=== PATIENT | male | born 1960 | race Caucasian/White ===

== ENCOUNTER → 2023-03-04 14:03 | Outpatient (BNVA) | payer MEDICARE, SELFPAY | PROVIDERS: Referring Provider Nurse Practitioner Family; Visit Provider Physician Assistant | DX: M43.17 Spondylolisthesis, lumbosacral region; M47.816 Spondylosis without myelopathy or radiculopathy, lumbar region; M40.56 Lordosis, unspecified, lumbar region; M54.17 Radiculopathy, lumbosacral region | CPT/HCPCS: 72110; 99203 ==

== ENCOUNTER 2023-04-02 12:34 | Outpatient (CLI) | payer MEDICARE, SELFPAY ==
--- NOTE | 2023-04-02 13:00 | MR_ITS ---
WS: [id number] MRI LUMBAR SPINE NONCONTRAST HISTORY: pain COMPARISON: None available. TECHNIQUE: Sagittal and axial multisequence imaging is submitted. Lucency through the base of the odontoid seen on the survey of the spine. Mild posterior tilting of t he odontoid process. No surrounding edema. No prior studies for comparison. Mild increase in the lumb ar lordosis. L5 anterolisthesis by 9 mm. Marrow edema in the adjacent endplates of L5 and S1. Remaining disc bases are mildly desiccated. No additional marrow edema or fracture. Conus terminates normally at L1-2 disc level. L1-L2: Normal. L2-L3: Mild annular disc bulging and mild ligamentum flavum and facet arthritis. Very minimal encroac hment upon the LEFT subarticular recess. No high-grade stenosis. L3-L4: Mild annular disc bulging with moderate ligamentum flavum and facet arthritis. Very mild disc encroachment upon the subarticular recesses and the traversing L4 nerve roots. Mild subarticular rece ss encroachment. L4-L5: Mild annular disc bulging with mild disc encroachment upon the subarticular recesses. Moderate ligamentum flavum and facet arthritis. Mild bilateral subarticular recess and foraminal stenosis. Ne rve roots are becoming slightly clumped within the thecal sac. L5-S1: Unroofing of the L5-S1 disc. Diffuse annular disc bulging encroaching upon the ventral thecal sac. No central stenosis. There is disc encroachment upon the subarticular recesses. Severe bilateral foraminal stenosis. Significant contact on the exiting L5 nerve roots. IMPRESSION: 1. Grade 2 spondylolisthesis of L5. Anterolisthesis by 9 mm. Pars defects are also evident. 2. L5-S1: Severe bilateral foraminal stenosis with facet joint arthritis and mild disc encroachment u thao the subarticular recesses. 3. L4-5: Mild bilateral subarticular recess and foraminal stenosis. Moderate facet arthritis. 4. Minimal LEFT subarticular recess encroachment at L2-3 and mild bilateral subarticular recess encro achment L3-4. 5. Lucency at the base of the odontoid process. Probably from from a remote odontoid fracture. No mo or studies for comparison.
== END 2023-04-02 12:35 | disposition home or self-care (01) ==
LOC: RAD 12:38
PROVIDERS: PCP Nurse Practitioner Family; Visit Provider Physician Assistant
DX: M43.16 Spondylolisthesis, lumbar region (principal); M48.07 Spinal stenosis, lumbosacral region; M47.817 Spondylosis without myelopathy or radiculopathy, lumbosacral region
CPT/HCPCS: 72148

== ENCOUNTER 2025-02-15 12:29 | Outpatient (CLI) | payer MEDICARE, SELFPAY ==
--- NOTE | 2025-02-15 12:38 | XRR_ITS ---
PROCEDURE INFORMATION: Exam: XR Lumbosacral Spine Exam date and time: 02/15/2025 12:57 PM Age: 64 years old Clinical indication: Low back pain; Prior surgery; Surgery date: 1-6 months; Chronic lower back pain that radiates into the right leg x 4 years. HX of lumbar fusion x 4-5 months; Additional info: Spondylolisthesis, lumbar region TECHNIQUE: Imaging protocol: Radiologic exam of the lumbosacral spine. Views: 2 or 3 views. COMPARISON: 1. MR lumbar spine wo con* [id number] 04/02/2023 1:18 PM 2. CR XR lumbar spine min 4V [id number] 03/04/2023 2:32 PM FINDINGS: Bones/joints: Interval lumbar spine surgery since prior imaging. Posterior metallic fixation device now involves L4-S1 levels. Intact pedicle screws traverse the L4 and S1 levels, with intact posterior stabilization bars. 14 mm of L5 anterolisthesis is unchanged since prior imaging . There has been interval development of mild superior endplate depression involving L2. No other vertebral body height loss or fracture. Moderate anterior endplate spurs throughout the lumbar spine are unchanged. Moderate degenerative disc disease at L5-S1 is unchanged. Soft tissues: Unremarkable. XR/XR lumbar spine 2-3V* [id number] IMPRESSION: 1. Interval development of mild L2 compression fracture. 2. Interval posterior fusion involving L4 and S1. No interval change and L5 spondylolisthesis.
== END 2025-02-15 12:30 | disposition home or self-care (01) ==
PROVIDERS: PCP Nurse Practitioner Family; Visit Provider Nurse Practitioner Family
DX: M43.16 Spondylolisthesis, lumbar region (principal); Z98.1 Arthrodesis status
CPT/HCPCS: 72100

== ENCOUNTER 2025-03-21 22:51 | Inpatient (IN) | payer MEDICARE, SELFPAY ==
--- OUTSIDE RECORDS SUMMARY | 2025-02-15 08:00 | XMS_ITS ---
Author Organization [facility] Address [address] [place] [id number] Care Team Providers Care Size Tester Name Role Phone Lyudmila Lowery APRN Primary Care Provider Ashley Gutierrez [phone] REASON FOR VISIT s/p 11/25/24 low back pain x ray prior lumbar radiculopathy Medications Medication SIG (Take, Route, Frequency, Duration) Notes Start Date End Date Status Methocarbamol Active Fluoxetine Active HYDROcodone-Acetaminophen Active busPIRone HCl Active Docusate Sodium Acti ve Metoclopramide HCl 10 MG Tablet 1 tablet Orally TID; Duration: 10 days Take scheduled X3 days, then as needed for hiccups 12/03/2024 Active Methocarbamol 750 MG Tablet 1 tablet as needed Orally TID; Duration: 30 days 01/06/2025 03/07/2025 Active Encounters Encounter Location Date Provider Diagnosis [facility] [address] [address] 02/15/2025 Ashley Avendano Plan Of Treatment No Information Progress Notes * ALEN RICH FDOB: 3 (64 yo M)Acc No.[id number]:02/15/2025 Patient: JENAE HEATHY Macario Provider: Shay Avendano APRN :1960 A ge:64 Y S ex:Male Date:02/15/2025 Address:[address] [place] [address], [id number] Pcp:Lyudmila Lowery APRN Subjective: * Chief Complaints: * S /p 11/25/24 low back pain x ray prior lumbar radiculopathy * Medications: T akingMethocarbamol 750 MG Tablet 1 tablet as needed Orally TID , stop date 03/07/2025usPIRone HCl Docusate Sodium Fluoxetine HYDROcodone-Acetaminophen Methocarbamol Metoclopramide HCl 10 MG Tablet 1 tablet Orally TID Take scheduled X3 days, then as needed for hiccupsTaking Methocarbamol 750 MG Tablet 1 tablet as needed Orally TID , stop date 03/07/2025Taking busPIRone HCl Taking Docusate Sodium Taking Fluoxetine Taking HYDROcodone-Acetaminophen Taking Methocarbamol Taking Metoclopramide HCl 10 MG Tablet 1 tablet Orally TID Take scheduled X3 days, then as needed for hiccups Billing Information: * Procedure Codes: * Electronic signature of Jaydon Irene APRN on 03/21/2025 at 11:19 PM CDT Sign off status: Pending * Provider: Shay Avendano APRN Date: 0 02/15/2025 Generated for Liu piedra/Caitie/Nola on: 0 03/21/2025 11:19 PM CDT
--- OUTSIDE RECORDS SUMMARY | 2025-03-15 05:00 | XMS_ITS ---
Author Organization [facility] Address [address] [place] [address] Care Team Providers Care Service Person Name Role Phone Lyudmila Lowery APRN Primary Care Provider Ashley Gutierrez [phone] REASON FOR VISIT s/11/25/24 TLIF Encounters Encounter Location Date Provider Diagnosis [facility] [address] [address] 03/15/2025 Ashley Avendano Plan Of Treatment No Information Progress Notes * ALEN RICH FDOB: 3 (64 yo M)Acc No.[id number]:03/15/2025 Progress Notes Patient: ALEN HEATH Provider: Shay Avendano APRN :1960 A ge:64 Y S ex:Male Date:03/15/2025 Address:[address] [place] [id number] Pcp:Lyudmila Lowery APRN Subjective: * Chief Complaints: * s /p5 TLIF Billing Information: * Procedure Codes: Care Plan Details* * Electronic signature of Jaydon Irene APRN on 03/21/2025 at 11:20 PM CDT Sign off status: Pending * Provider: Shay Avendano APRN Date: 03/15/2025 Generated for Liu ng/Faabrilg/eTransmitting on: 03/21/2025 11:20 PM CDT
[2025-03-21 22:52] VITALS: BP 181/99; PULSE 90; RESP 17; O2SAT 95; BMI 24.3
--- NOTE | 2025-03-21 22:55 | PC.NURSE ---
upon arrival to the ed, pt was in 4 point soft restraints placed by [place] [facility]. upon arrival, pt had a skin tear to the left elbow, a skin tear around the left wrist, and an abrasion to the left hip. provider notified of injuries. wounds dressed with gauze and coban from ems with bleeding controlled at this time.
--- NOTE | 2025-03-21 23:00 | PC.NURSE ---
[facility] Pt served with copy of [facility] by their RN and security. Pt in restraint bed and resistant to any attempts of care made by staff.
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
[2025-03-21] MEDS: ketamine 100 mg/mL Inj 5 mL 300 MG IM (23:06)
--- NOTE | 2025-03-21 23:17 | PC.NURSE ---
pt restraints removed from ankles at 2317. pt wrist restraints removed to change pt into paper scrubs. wrist restraints reapplied at 0.
--- OUTSIDE RECORDS SUMMARY | 2025-03-21 23:19 | XMS_ITS | Encounter Summary ---
Author Organization [facility] Address [address] [place] [address] Care Team Providers Care Sales Force Developer Name Role Phone Marci Simpson Primary Care Provider [phone] Encounter Details Date Type Department Care Team (Late st Contact Info) Description 03/15/2025 External Device Data [facility] ABSTRACTION Provider, Abstract NO ADDRESS ON FILE Social History Tobacco Use Types Packs/Day Years Used Date Smoking Tobacco: Former Cigarettes Q uit: 06/27/2021 Smokeless Tobacco: Former Quit: 02/11/2015 Alcohol Use Standard Drinks/Week Comments Not Currently 0 (1 standard drink = 0.6 oz pur e alcohol) Financial Resource Strain Answer Date R ecorded How hard is it for you to pa y for the very basics like food, housing, medical care, and heating? Hard 05/28/2022 Food Insecurity Answer Date Recorded In the past 12 months, have you worried that your food would run out before you had money to buy more? Sometimes true 2021 In the past 12 months, did y ou run out of food and didn't have money to buy more? Never true 05/28/2022 Transportation Needs Answer Date Record ed In the past 12 months, has l ack of transportation kept you from medical appointments or from getting medications? No 05/28/2022 Lack of Transportation (Non-Medical) Not on file 05/28/2022 Feeling Safe Answer Date Recorded Are you in a relationship wi th someone who hurts you emotionally and/or physically? 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 OPERATOR Gender Identity Not on file Sexual Orientation Not on file documented as of this encounter Plan of Treatment Upcoming Encounters Date Type Department Care Team (Late st Contact Info) Description 08/25/2025 1:00 PM GAUGE OPERATOR Office Visit [facility] [address] [place] [id number] [place], LASER TECHNICIAN [address] [place] [facility] [id number] documented as of this encounter Visit Diagnoses Not on filedocumented in this encounter Additional Health Concerns Assessment Noted Time PHQ-9 Depression Total Score: 2 02/22/20 25 8:15 AM CDT documented as of this encounter Care Teams Sales Force Developer Relationship Specialty Start Date End Date Marci Simpson DO [address] [place] [facility] [phone] PCP - General Family Practice 08/30/24 documented as of this encounter
--- OUTSIDE RECORDS SUMMARY | 2025-03-21 23:19 | XMS_ITS | Patient Health Record ---
Author Organization [facility] Address [address] [place] [address] Care Team Providers Care Ruby On Rails Web Developer Name Role Phone Lyudmila Lowery APRN Primary Care Provider Unavaila Ashley Bowling Unavailable [phone] Alpesh Lyon Unavailable [phone] Aruna North Unavailable [phone] Allergies No Known Allergies Results Component Value Reference Range Flag Notes zzzFluoro >1h4 (Not yet revi ewed by provider) Interpretation: Performing Lab: Notes/Report: Fluoroscopy only. No dictation for this exam and accession number. FINAL REPORT Read Fluoroscopy only. No dictation for this exam and accession number. Lumbosacral Spine AP/Lat-721 00 Reviewed date:01/10/2025 01:27:29 PM Interpretation: Performing Lab: Notes/Report: [email or web address]=[id number]=iSite IH Lumbosacral Spine AP/Lat - 24821 (Not yet reviewed by provider) Interpretation: Performing Lab: Notes/Report: See Below For Report Lumbosacral Spine AP/Lat IH Lumbosacral Spine AP/Lat - 92927 (Not yet reviewed by provider) Interpretation: Performing Lab: Notes/Report: [email or web address]=[id number]=iSite Antibody Screen 33129 (Not y et reviewed by provider) Interpretation: Performing Lab: Notes/Report: Diagnosis Description: Hemorrhagic condition, unspecified Diagnosis Description: Encounter for other preprocedural examination Diagnosis Description: Spondylolisthesis, lumbar region Diagnosis Description: Spondylolysis, lumbar region Diagnosis Description: Lumbago with sciatica, right side Diagnosis Description: Lumbago with sciatica, left side Blood Bank ID [id number] Unknown ABSC Interp Negative ABORh 04132, 15908 (Not yet reviewed by provider) Interpretation: Performing Lab: Notes/Report: Diagnosis Description: Hemorrhagic condition, unspecified Diagnosis Description: Encounter for other preprocedural examination Diagnosis Description: Spondylolisthesis, lumbar region Diagnosis Description: Spondylolysis, lumbar region Diagnosis Description: Lumbago with sciatica, right side Diagnosis Description: Lumbago with sciatica, left side ABO/Rh Interp O NEG Unknown Partial Thromboplastin Time 00738 (Not yet reviewed by provider) Interpretation: Performing Lab: Notes/Report: Diagnosis Description: Hemorrhagic condition, unspecified Diagnosis Description: Encounter for other preprocedural examination Diagnosis Description: Spondylolisthesis, lumbar region Diagnosis Description: Spondylolysis, lumbar region Diagnosis Description: Lumbago with sciatica, right side Diagnosis Description: Lumbago with sciatica, left side PTT 33.9 22.6-31.8 SEC HI Therapeutic Range: 60-100. Critical Value Starting at > 100. Prothrombin Time 03961 (Not yet reviewed by provider) Interpretation: Performing Lab: Notes/Report: Diagnosis Description: Hemorrhagic condition, unspecified Diagnosis Description: Encounter for other preprocedural examination Diagnosis Description: Spondylolisthesis, lumbar region Diagnosis Description: Spondylolysis, lumbar region Diagnosis Description: Lumbago with sciatica, right side Diagnosis Description: Lumbago with sciatica, left side ProTime 10.4 9.1-11.9 SEC Normal Range : 9.1-11.9 INR .96 .90-1.20 Therapeutic Range: 2.0-3.0 Therapaeutic Range for heart valve replacement: 2.5-3.50 Basic Metabolic Panel (BMP) 86284 (Not yet reviewed by provider) Interpretation: Performing Lab: Notes/Report: Diagnosis Description: Hemorrhagic condition, unspecified Diagnosis Description: Encounter for other preprocedural examination Diagnosis Description: Spondylolisthesis, lumbar region Diagnosis Description: Spondylolysis, lumbar region Diagnosis Description: Lumbago with sciatica, right side Diagnosis Description: Lumbago with sciatica, left side Sodium 138 136-145 MMOL/L Potassium 3.7 3.5-5.1 MMOL/L Chloride 102 98-107 MMOL/L CO2 27.2 20.0-31.0 MMOL/L Glucose Serum 85 71-110 MG/DL Testing p erformed at [address] [place] [address]. CLIA ID#: [id number] BUN 12 7-21 MG/DL Creat .94 .57-1.17 MG/DL Use of this assay is not recommended for patients undergoing treatment with phenindione, due to the potential for falsely depressed results. L-fcwldv-s-benzoquin one imine (NAPQI) is a metabolite of acetaminophen, NAPQI concentrations of apparoximately 10 mg/L correlation to toxic levels of acetaminophen demonstrates a greater than or equil to 10% change in results. NAPQI concentrations greater than this may lead to falsely depressed results for patient samples. GFR 91.2 NA Calculation pe rformed from GFR calculator provided by the [employer]. Glomerular Filtration rate(GRF) is the best overall index of kidney function. Normal GFR varies according to age,sex, body size, and declines with age. The [employer] recommends using the CKD-EPI Creatinine Equation(2020) to estimate GFR. Anion Gap 12 5-15 BUN/Creat Ratio 12.8 12.0-20.0 % Calcium 9.3 8.7-10.4 MG/DL Osmo Serum,Calculated 285 280-300 MOSM/KG CBC w\ Auto Diff 84246 (Not yet reviewed by provider) Interpretation: Performing Lab: Notes/Report: Diagnosis Description: Hemorrhagic condition, unspecified Diagnosis Description: Encounter for other preprocedural examination Diagnosis Description: Spondylolisthesis, lumbar region Diagnosis Description: Spondylolysis, lumbar region Diagnosis Description: Lumbago with sciatica, right side Diagnosis Description: Lumbago with sciatica, left side WBC 6.2 4.5-11.0 X10'3 RBC 4.60 4.50-5.90 X10'6 Hgb 13.8 13.5-17.5 G/DL Hct 43.2 41.0-53.0 % MCV 93.9 80.0-100.0 FL MCH 30.0 27.0-31.0 PG MCHC 31.9 31.0-37.0 G/DL Platelet 224 150-400 X10'3 RDW-SD 48.3 35.0-49.0 FL RDW-CV 14.0 12.2-15.6 % MPV 9.4 9.2-12.0 FL Neutro Auto% 66.8 40.0-70.0 % Lymph Auto% 22.1 22.0-44.0 % Isabella Auto% 7.4 3.0-7.0 % HI Eos Auto% 2.7 2.0-4.0 % Baso Auto% 0.5 0.0-1.0 % Imm Gran% .5 .0-.4 % HI Neutro Abs 4.13 .80-7.70 Absolute Neutrophil Count 4130 NA Lymph Abs 1.37 .10-4.10 Isabella Abs .46 .20-1.00 Eos Abs .17 .00-.40 Baso Abs .03 .00-.20 Imm Gran Abs .03 .00-.10 NRBC# .00 .00-.20 NRBC% .00 .00-.20 /100 intact WBC's Chest PA/Lat-77087 (Not yet reviewed by provider) Interpretation: Performing Lab: Notes/Report: [id number]=iSite Chest PA/Lat-05913 (Not yet reviewed by provider) Interpretation: Performing Lab: Notes/Report: See Below For Report Chest PA/Lat Diagnosis Description: Encounter for other preprocedural examination Read See Below For Report Schedule Confirmation (Not y et reviewed by provider) Interpretation: Performing Lab: Notes/Report: CT L-Spine w/o Contrast Mazor Protocol CT L-Spine w/o Contrast Ava r Protocol-50717 (Not yet reviewed by provider) Interpretation: Performing Lab: Notes/Report: [id number]=iSite Lumbosacral Spine Bending Vi ews-90762 (Not yet reviewed by provider) Interpretation: Performing Lab: Notes/Report: See Below For Report Lumbosacral Spine Bending Views Read See Below For Report IH Lumbosacral Spine AP/Lat - 56013 Reviewed date:01/10/2025 01:29:49 PM Interpretation: Performing Lab: Notes/Report: See Below For Report Lumbosacral Spine AP/Lat Diagnosis Description: Spondylolisthesis, lumbar region Schedule Confirmation (Not y et reviewed by provider) Interpretation: Performing Lab: Notes/Report: CT L-Spine w/o Contrast Mazor Protocol CT L-Spine w/o Contrast Ava r Protocol-79714 (Not yet reviewed by provider) Interpretation: Performing Lab: Notes/Report: See Below For Report CT L-Spine w/o Contrast Mazor Protocol Diagnosis Description: Unstable burst fracture of second lumbar vertebra, subsequent encounter for fracture with routine healing Read See Below For Report Reason For Referral No Information Medications Medication SIG (Take, Route, Frequency, Duration) Notes Start Date End Date Status Methocarbamol Active Metoclopramide HCl 10 MG Tablet 1 tablet Orally TID; Duration: 10 days Take scheduled X3 days, then as needed for hiccups 12/03/2024 Active Fluoxetine Active HYDROcodone-Acetaminophen Active busPIRone HCl Active Docusate Sodium Acti ve Social History Tobacco Use: Social History Observation Description Date Details (start date - stop date) Current Smoker NA - NA Social History Drug/Alcohol: Social Info Question Answer Notes AUDIT-C (Standard) Did you have a drink containing alcohol in the past year? No Points 0 Interpretation Negative Tobacco Use: Social Info Question Answer Notes Tobacco Control (Standard) Tobacco use: Current smoker How often do you smoke cigarettes? Every day Problems Problem Type SNOMED Code ICD Code Onset Dates Problem Status W/U Status Risk Notes Problem Chronic pain (16601954) Other chronic pain (G89.29) Active confirmed Problem Acquired spondylolisthesis (182705257) Spondylolisthesis, lumbar region (M43.16) Active confirmed Problem Cervicalgia (44044122) Cervicalgia (M54.2) Active confirmed Problem Sciatica (98103260) Lumbago with sciatica, right side (M54.41) Active confirmed Problem Sciatica (43897433) Lumbago with sciatica, left side (M54.42) Active confirmed Problem Bleeding tendency (98251799) Bleeding tendency (D69.9) Active confirmed Problem Acquired spondylolisthesis (222280900) Lumbar spondylolysis (M43.06) Active confirmed Problem Acquired spondylolisthesis (615074357) Acquired spondylolisthesis of lumbosacral region (M43.17) Active confirmed Problem Late effect of fracture of spine AND/OR trunk without spinal cord lesion (5006521) Pseudoarthrosis of cervical spine, sequela (S12.9XXS) Active confirmed Problem Closed unstable burst fracture of second lumbar vertebra with routine healing, subsequent encounter (S32.022D) Active confirmed Problem Acute low back pain (finding) (829208142) Acute midline low back pain without sciatica (M54.50) Active confirmed Vital Signs Heart Rate 62 /min 01/06/2025 Temperature 96.8 degrees Fahrenheit 01/06/2025 Respiratory Rate 19 /min 01/06/2025 Height-cm 170.18 cm 01/06/2025 Oximetry 96 % 01/06/2025 Blood pressure diastolic 72 mm Hg 01/06/2025 Weight-kg 72.58 kg 01/06/2025 Height 67 in 01/06/2025 Blood pressure systolic 142 mm Hg 01/06/2025 Weight 160 lbs 01/06/2025 BMI 25.06 kg/m2 01/06/2025 Encounters Encounter Location Date Provider Diagnosis [facility] [address] [place] [address] 10/21/2024 Alpesh Rodriguezalyssa Closed unstable burs t fracture of second lumbar vertebra with routine healing, subsequent encounter S32.022D ; Other chronic pain G89.29 ; Acute midline low back pain without sciatica M54.50 ; Spondylolisthesis, lumbar region M43.16 ; Lumbar spondylolysis M43.06 ; Lumbago with sciatica, right side M54.41 and Lumbago with sciatica, left side M54.42 [facility] [address] [place] [address] 07/22/2024 Alpesh Rodriguezalyssa Closed unstable burs t fracture of second lumbar vertebra with routine healing, subsequent encounter S32.022D ; Other chronic pain G89.29 ; Acute midline low back pain without sciatica M54.50 and Spondylolisthesis, lumbar region M43.16 [facility] [address] [place] [address] 06/14/2024 Alpesh Ramírezmartha Closed unstable burs t fracture of second lumbar vertebra with routine healing, subsequent encounter S32.022D ; Acute midline low back pain without sciatica M54.50 ; Cervicalgia M54.2 ; Pseudoarthrosis of cervical spine, sequela S12.9XXS and Spondylolisthesis, lumbar region M43.16 [facility] [address] [place] [address] 01/06/2025 Aruna North Spondylolisthesis, lumbar region M43.16 ; Lumbar spondylolysis M43.06 ; Lumbago with sciatica, right side M54.41 ; Lumbago with sciatica, left side M54.42 ; Postop check Z09 and Arthrodesis status Z98.1 [facility] [address] [place] [address] 12/09/2024 Aruna North Spondylolisthesis, lumbar region M43.16 ; Lumbar spondylolysis M43.06 ; Lumbago with sciatica, right side M54.41 ; Lumbago with sciatica, left side M54.42 ; Postop check Z09 and Arthrodesis status Z98.1 [facility] [address] [facility] [place] [address] 12/03/2024 Aruna North Spondylolisthesis, lumbar region M43.16 ; Lumbar spondylolysis M43.06 ; Lumbago with sciatica, right side M54.41 ; Lumbago with sciatica, left side M54.42 ; Postop check Z09 ; Arthrodesis status Z98.1 and Intractable hiccups R06.6 [facility] [address] [facility] [place] [place] [address] 05/10/2024 Alpesh Lyon Closed unstable burs t fracture of second lumbar vertebra with routine healing, subsequent encounter S32.022D ; Acute midline low back pain without sciatica M54.50 ; Cervicalgia M54.2 and Pseudoarthrosis of cervical spine, sequela S12.9XXS [facility] [address] [place] [address] 11/09/2024 Alpesh Lyon Bleeding tendency D6 9.9 ; Pre-op testing Z01.818 ; Spondylolisthesis, lumbar region M43.16 ; Lumbar spondylolysis M43.06 ; Lumbago with sciatica, right side M54.41 and Lumbago with sciatica, left side M54.42 [facility] [address] [place] [address] 10/27/2024 Alpesh Lyon [facility] [address] [place] [address] 10/26/2024 [facility] [address] [place] [address] 09/09/2024 [facility] [address] [place] [address] 08/09/2024 [facility] [address] [place] [address] 07/15/2024 [facility] [address] [place] [address] 07/05/2024 [facility] [address] [place] [address] 06/29/2024 Alpesh martha Bleeding tendency D6 9.9 ; Pre-op testing Z01.818 ; Closed unstable burst fracture of second lumbar vertebra with routine healing, subsequent encounter S32.022D ; Acute midline low back pain without sciatica M54.50 and Spondylolisthesis, lumbar region M43.16 [facility] [address] [place] [address] 06/16/2024 [facility] [address] [place] [address] 02/24/2025 [facility] [address] [place] [address] 12/07/2024 Aruna North [facility] [address] [place] [address] 11/29/2024 Alpesh Lyon Assessments Encounter Date Diagnosis (ICD Code) Assessment Notes Treatment Notes Treatment Clinical Notes Section Notes 05/10/2024 Closed unstable burst fracture of second lumbar vertebra with routine healing, subsequent encounter (ICD-10 - S32.022D) Patient symptoms and clinical findings reviewed. Patient appears to have good healing of burst fracture, he has continued lower back pain that is somewhat mechanical in nature, he might benefit from hardware removal will obtain CT scan to assess healing of burst fracture and hardware, return visit 2 weeks 05/10/2024 Acute midline low back pain without sciatica (ICD-10 - M54.50) 06/14/2024 Closed unstable burst fracture of second lumbar vertebra with routine healing, subsequent encounter (ICD-10 - S32.022D) Patient symptoms and clinical findings reviewed, imaging studies shown to patient and discussed. I recommended removal of hardware T12-L4, L2 burst fracture appears to have healed well without complication. Patient has residual back and hip pain, additional pain generators could be spondylolisthesis at L5-S1 however this is an old problem and less likely to be the pain generator at present. All questions and concerns addressed, patient would like to proceed with minimally invasive percutaneous removal of hardware. 06/14/2024 Acute midline low back pain without sciatica (ICD-10 - M54.50) 06/29/2024 Bleeding tendency (ICD-10 - D69.9) 07/22/2024 Closed unstable burst fracture of second lumbar vertebra with routine healing, subsequent encounter (ICD-10 - S32.022D) 07/22/2024 Other chronic pain (ICD-10 - G89.29) Patient symptoms and clinical findings reviewed, treatment options discussed. I have again recommended hardware removal, patient is not inclined to consider this option. Will continue symptomatic treatment, return visit 3 months or sooner if symptoms change or worsen. 10/21/2024 Closed unstable burst fracture of second lumbar vertebra with routine healing, subsequent encounter (ICD-10 - S32.022D) 10/21/2024 Other chronic pain (ICD-10 - G89.29) Patient symptoms and clinical findings reviewed, treatment options discussed. All questions and concerns addressed. I recommended above surgery with removal of hardware T12-L4 with percutaneous technique, posterolateral fusion L4, L5, S1 with foraminotomies minimally invasive approach, posterolateral fusion L4, L5, S1 bilateral. Will use [employer] robot for minimally invasive imaging stereotactic navigational robotic approach. 11/09/2024 Bleeding tendency (ICD-10 - D69.9) 12/03/2024 Spondylolisthesis, lumbar region (ICD-10 - M43.16) Patient symptoms and clinical findings reviewed, treatment options discussed. All questions and concerns addressed. Will start patient on Cephalexin BID for redness, warmth, and drainage to lumbar incision. Start Reglan for intractable hiccups. Educated on signs/symptoms of infection and bowel obstruction and when to return to clinic. Patient verbalizes understanding. Follow up next week as scheduled. Patient agreeable to plan. 12/03/2024 Lumbar spondylolysis (ICD-10 - M43.06) 12/09/2024 Spondylolisthesis, lumbar region (ICD-10 - M43.16) Patient symptoms and clinical findings reviewed, response to surgical treatment discussed. All questions and concerns addressed. Incision healing well, May use heat/ice on incision to help with healing. Okay to lift up to 15 pounds. May begin driving. No soaking incision. Denies need for refills. F/u in 4-6 weeks w/ xray prior, sooner if needed. 01/06/2025 Spondylolisthesis, lumbar region (ICD-10 - M43.16) Patient symptoms and clinical findings reviewed, response to surgical treatment discussed. All questions and concerns addressed. Incision healing well w/o signs of infection Okay to lift up to 20 pounds. May soak incision. Lumbosacral xray reviewed with stable hardware. Refill methocarbamol today. F/u in 8 weeks w/ xray prior, sooner if needed. 01/06/2025 Lumbar spondylolysis (ICD-10 - M43.06) 12/09/2024 Lumbar spondylolysis (ICD-10 - M43.06) 12/03/2024 Lumbago with sciatica, right side (ICD-10 - M54.41) 11/09/2024 Pre-op testing (ICD-10 - Z01.818) 10/21/2024 Acute midline low back pain without sciatica (ICD-10 - M54.50) 07/22/2024 Acute midline low back pain without sciatica (ICD-10 - M54.50) 06/29/2024 Pre-op testing (ICD-10 - Z01.818) 06/14/2024 Cervicalgia (ICD-10 - M54.2) 05/10/2024 Cervicalgia (ICD-10 - M54.2) 05/10/2024 Pseudoarthrosis of cervical spine, sequela (ICD-10 - S12.9XXS) 06/14/2024 Pseudoarthrosis of cervical spine, sequela (ICD-10 - S12.9XXS) 06/29/2024 Closed unstable burst fracture of second lumbar vertebra with routine healing, subsequent encounter (ICD-10 - S32.022D) 07/22/2024 Spondylolisthesis, lumbar region (ICD-10 - M43.16) 10/21/2024 Spondylolisthesis, lumbar region (ICD-10 - M43.16) 11/09/2024 Spondylolisthesis, lumbar region (ICD-10 - M43.16) 12/03/2024 Lumbago with sciatica, left side (ICD-10 - M54.42) 12/09/2024 Lumbago with sciatica, right side (ICD-10 - M54.41) 01/06/2025 Lumbago with sciatica, right side (ICD-10 - M54.41) 01/06/2025 Lumbago with sciatica, left side (ICD-10 - M54.42) 12/09/2024 Lumbago with sciatica, left side (ICD-10 - M54.42) 12/03/2024 Postop check (ICD-10 - Z09) 11/09/2024 Lumbar spondylolysis (ICD-10 - M43.06) 10/21/2024 Lumbar spondylolysis (ICD-10 - M43.06) 06/29/2024 Acute midline low back pain without sciatica (ICD-10 - M54.50) 06/14/2024 Spondylolisthesis, lumbar region (ICD-10 - M43.16) 06/29/2024 Spondylolisthesis, lumbar region (ICD-10 - M43.16) 10/21/2024 Lumbago with sciatica, right side (ICD-10 - M54.41) 11/09/2024 Lumbago with sciatica, right side (ICD-10 - M54.41) 12/03/2024 Arthrodesis status (ICD-10 - Z98.1) 12/09/2024 Postop check (ICD-10 - Z09) 01/06/2025 Postop check (ICD-10 - Z09) 01/06/2025 Arthrodesis status (ICD-10 - Z98.1) 12/09/2024 Arthrodesis status (ICD-10 - Z98.1) 12/03/2024 Intractable hiccups (ICD-10 - R06.6) 11/09/2024 Lumbago with sciatica, left side (ICD-10 - M54.42) 10/21/2024 Lumbago with sciatica, left side (ICD-10 - M54.42) Plan Of Treatment Pending Test Test Name Order Date Prothrombin Time 34184 06/29/2024 Prothrombin Time 82828 11/09/2024 Prothrombin Time 25274 12/30/2023 Prothrombin Time 76273 11/18/2024 ABORh 27667, 77620 11/18/2024 ABORh 10701, 47116 12/30/2023 ABORh 16796, 66378 06/29/2024 ABORh 64843, 78239 11/09/2024 Antibody Screen 95669 11/09/2024 Antibody Screen 21435 06/29/2024 Antibody Screen 81277 12/30/2023 Antibody Screen 36362 11/18/2024 Basic Metabolic Panel (BMP) 78197 2024 Basic Metabolic Panel (BMP) 09591 2023 Basic Metabolic Panel (BMP) 20711 2023 Basic Metabolic Panel (BMP) 16283 2024 CBC w\ Auto Diff 48455 06/29/2024 CBC w\ Auto Diff 08412 11/09/2024 CBC w\ Auto Diff 06941 12/30/2023 CBC w\ Auto Diff 88587 11/18/2024 Partial Thromboplastin Time 07967 2024 Partial Thromboplastin Time 54147 2023 Partial Thromboplastin Time 08914 2023 Partial Thromboplastin Time 65039 2024 Cervical Spine w/ Obl/Flex/Ext Comp-7205 2 02/16/2024 CT L-Spine w/o Contrast incl Recon-45529 12/29/2023 CT L-Spine w/o Contrast incl Recon-35938 12/29/2023 Lumbosacral Spine Bending Views-40134 Lumbosacral Spine Comp w/ Bending-36047 02/16/2024 Thoracolumbar Spine AP/Lat-94950 024 Thoracolumbar Spine AP/Lat-58222 024 Urinalysis--41979 12/29/2023 UA Microscopic--57223 12/29/[address] [facility]-46265,66124 12/30/2023 zzzFluoro >1h4 11/25/2024 zzzFluoroscopy 12/30/2023 Schedule Confirmation 05/13/2024 Schedule Confirmation 05/13/2024 CT L-Spine w/o Contrast Mazor Protocol-7 213005/13/2024 IH Lumbosacral Spine AP/Lat - 77387 11/11 IH Lumbosacral Spine AP/Lat - 86136 11/11 Future Test Test Name Order Date Cervical Spine w/ Obl/Flex/Ext Comp-7205 2 01/22/2024 Lumbosacral Spine Comp w/ Bending-05024 01/22/2024 Lumbosacral Spine Bending Views-28709 CT L-Spine w/o Contrast Mazor Protocol-7 213005/12/2024 Chest PA/Lat-10660 06/29/2024 Electrocardiogram 12 Lead Tracing-13668 06/29/2024 Chest PA/Lat-60546 11/09/2024 Electrocardiogram 12 Lead Tracing-50218 11/09/2024 Lumbosacral Spine AP/Lat-01290 5 Insurance Providers Payer Name Payer Address Payer Phone Subscriber Number Group Number Insured Name Patient Relationship to Insured Coverage Start Date Coverage End Date [employer] [place] [address] [place] [address] [id number] LAYLA ALEN Self - patient is the insured Medical (General) History Medical History History ICD Code Back Trouble Surgical History Surgery Date(Month/Year) Reduction of L2 Burst Fractu re, Posterior Stabilization of L2 Burst Fracture with Perc pedicle screws T12-L4 with Contoured rods, Posterolateral Fusion L2-3 MIS. 12/29/2023 Hospitalization History Reason Date(Month/Year) Burst Fracture
--- OUTSIDE RECORDS SUMMARY | 2025-03-21 23:19 | XMS_ITS | Clinical Summary ---
Author Organization [facility] Address [address] [place] [address] Phone Care Team Providers Care Respiratory Clinician Name Role Phone Long Li MD Primary Care Provider [phone] Allergies No known active allergies Medications pravastatin (PRAVACHOL) 40 mg tabletIndications:M ixed hyperlipidemia Take 1 Tablet (40 mg) by mouth daily with supper. 90 Tablet 4 0 Active orphenadrine (NORFLEX) 100 mg Extended Release tabletIndications:C hronic neck pain Take 1 Tablet (100 mg) by mouth 2 times daily as needed for Spasm (Pain). 60 Tablet 5 0 Active Active Problems Problem Noted Date Diagnosed Date Tobacco use 11/30/2019 Mixed hyperlipidemia 11/30/2019 Vitamin D deficiency 11/30/2019 Chronic neck pain 11/30/2019 Social History Tobacco Use Types Packs/Day Years Used Date Smoking Tobacco: Every Day Cigarettes Smokeless Tobacco: Current Alcohol Use Standard Drinks/Week Comments Never 0 (1 standard drink = 0.6 oz pur e alcohol) Sex and Gender Information Value Date Recorded Sex Assigned at Not on file Legal Sex Male 1:17 AM CDT Gender Identity Not on file Sexual Orientation Not on file Last Filed Vital Signs Vital Sign Reading Time Taken Comments Blood Pressure 118/70 11/30/2019 2:29 PM CDT Pulse 99 11/30/2019 2:29 PM CDT Temperature 36.4 C (97.6 F) 11/30/2019 2:29 PM CDT Respiratory Rate 16 11/30/2019 2:29 PM CDT Oxygen Saturation 95% 11/30/2019 2:29 PM CDT Inhaled Oxygen Concentration - - Weight 83 kg (183 lb) 11/30/2019 2:29 PM CDT Height 162.6 cm (5' 4 ) 11/30/2019 2:29 PM CDT Body Mass Index 31.41 11/30/2019 2:29 PM CDT Plan of Treatment Health Maintenance Due Date Last Done Comments Pre-Diabetes and Diabetes Screening 1962 DTAP/TDAP/TD VACCINES (1 - Tdap) 1981 COLORECTAL SCREENING 2007 Colorectal Cancer Screening 2007 FIT-DNA Q 3 years 2007 FIT/FOBT Q 1 year 2007 Flex Sig/CT Colonography Q 5 years 2007 ZOSTER VACCINE (1 of 2) 2012 INFLUENZA VACCINE (#1) 2025 RSV VACCINE (60+ or ) (1 - 1-dose 75+ series) 2037 Care Teams Respiratory Clinician Relationship Specialty Start Date End Date Long Li MD [address] [place] [address] PCP - General Family Practice 11/30/19
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
--- OUTSIDE RECORDS SUMMARY | 2025-03-21 23:20 | XMS_ITS | Clinical Summary ---
Author Organization [facility] Address [address] [facility] Attn: Epic Prelude ADT MATE[place] [address] Care Team Providers Care Digital Media Sales Consultant Name Role Phone Marci Simpson John SANDERS Primary Care Provider [phone] Allergies No known active allergies Medications sildenafiL, pulm.hypertension, (REVATIO) 20 mg TabletIndications: Erectile dysfunction, unspecified erectile dysfunction type TAKE FIVE TABLETS BY MOUTH ONE time daily NEEDED FOR erectile dysfunction. 75 Tablet 11/19/19 24 Active pravastatin (PRAVACHOL) 40 mg tabletIndications: Mixed hyperlipidemia TAKE 1 TABLET DAILY WITH SUPPER 100 Tablet 3 08/30/19 25 Active FLUoxetine (PROzac) 40 mg capsuleIndications :Mild episode of recurrent major depressive disorder Take 1 Capsule (40 mg) by mouth daily. 90 Capsule 3 12/28/19 25 Active hydrOXYzine HCL (ATARAX) 10 mg tabletIndications: EVELIN (generalized anxiety disorder) Take 1 Tablet (10 mg) by mouth 3 times daily as needed for Anxiety. 90 Tablet 2 02/22/20 25 Active busPIRone (BUSPAR) 15 mg TabletIndications: EVELIN (generalized anxiety disorder) Take 1 Tablet (15 mg) by mouth 3 times daily as needed for Anxiety. 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 2021 Erectile dysfunction 2021 Bulging lumbar disc 02/27/2021 Pars defect with spondylolisthesis 02/27/2021 Hiatal hernia 02/27/2021 Tobacco use 11/30/2019 Mixed hyperlipidemia 11/30/2019 Vitamin D deficiency 11/30/2019 Chronic neck pain 11/30/2019 Encounters Date Type Department Care Team Description 03/15/2025 External Device Data [facility] ABSTRACTION Provider, Abstract 03/01/2025 External Device Data [facility] ABSTRACTION Provider, Abstract 03/01/2025 External Device Data [facility] ABSTRACTION Provider, Abstract 02/23/2025 Orders Only [facility] [address] [place] [address] Waite, October, DIRECTOR OF PHYSICAL SECURITY Hypersomnia (Primary Dx) 02/23/2025 Orders Only [facility] [address] [place] [address] Waite, October, DIRECTOR OF PHYSICAL SECURITY Hypersomnia (Primary Dx) 02/22/2025 Results Follow-Up [facility] [address] [place] [address] Waite, October, DIRECTOR OF PHYSICAL SECURITY PSA, VITAMIN D 25 HYDROXY, TSH, Additional followed-up results: 3 02/21/2025 8:20 AM CDT Office Visit [facility] [address] [place] [address] Waite, October, DIRECTOR OF PHYSICAL SECURITY Encounter for Medicare annual wellness exam (Primary Dx); Encounter for colorectal cancer screening using Cologuard test; Mild episode of recurrent major depressive disorder; EVELIN (generalized anxiety disorder); Mixed hyperlipidemia; Hypersomnia; Vitamin D deficiency; Encounter for screening for malignant neoplasm of prostate 02/08/2025 External Device Data [facility] ABSTRACTION Provider, Abstract 02/08/2025 External Device Data [facility] ABSTRACTION Provider, Abstract 01/04/2025 External Device Data [facility] ABSTRACTION Provider, Abstract 01/04/2025 External Device Data [facility] ABSTRACTION Provider, Abstract 12/29/2024 External Device Data [facility] ABSTRACTION Provider, Abstract 12/27/[address] [phone] Morris, Crystal Cecy, DIRECTOR OF PHYSICAL SECURITY Mild episode of recurrent major depressive disorder from Last 3 Months Immunizations Immunization Administration Dates Next Due (ADACEL/BOOSTRIX)(10 YR UP) TDAP VACCINE, 0.5ML, IM 10/08/2024 (SPIKEVAX) (12 YRS UP PRIMAR Y SERIES) COVID-19 VACCINE - MRNA-1273(PF) 100 MCG/0.5 ML IM SUSP 10/10/2020,09/11/2020 INFLUENZA VACCINE QUADRIVALENT 6 MOS UP PF IM Influenza Seasonal Unspecified Formulation IM Social History Tobacco Use Types Packs/Day Years Used Date Smoking Tobacco: Former Cigarettes Q uit: 06/27/2021 Smokeless Tobacco: Former Quit: 02/11/2015 Tobacco Cessation:Counseling Given: No Alcohol Use Standard Drinks/Week Comments Not Currently [...] on file Legal Sex Male 8:19 AM AERIAL PLANTING AND CULTIVATION MANAGER Gender Identity Not on file Sexual Orientation Not on file Last Filed Vital Signs Vital Sign Reading Time Taken Comments Blood Pressure 122/70 02/21/2025 8:18 AM CDT Pulse 71 02/21/2025 8:18 AM CDT Temperature 36.8 C (98.2 F) 02/21/2025 8:18 AM CDT Respiratory Rate 18 02/21/2025 8:18 AM CDT Oxygen Saturation 98% 02/21/2025 8:18 AM CDT Inhaled Oxygen Concentration - - Weight 71.2 kg (157 lb) 02/21/2025 8:18 AM CDT Height 165.1 cm (5' 5 ) 02/21/2025 8:18 AM CDT Body Mass Index 26.13 02/21/2025 8:18 AM CDT Plan of Treatment Upcoming Encounters Date Type Department Care Team (Late st Contact Info) Description 08/25/2025 1:00 PM AERIAL PLANTING AND CULTIVATION MANAGER Office Visit [facility] [address] [place] [address] Waite, October, DIRECTOR OF PHYSICAL SECURITY [address] [place] [facility] [place] [address] Health Maintenance Due Date Last Done Comments Pre-Diabetes and Diabetes Screening 1962 FIT/FOBT Q 1 YEAR (AUTO ORDER) 1980 COLORECTAL CANCER SCREENING (AUTO ORDER) 2007 COLORECTAL SCREENING 2007 FIT/FOBT Q 1 year 2007 Flex Sig/CT Colonography Q 5 years 2007 ZOSTER VACCINE (1 of 2) 2012 INFLUENZA VACCINE (#1) 2025 , 05/28/2022, 07/09/2021 COVID-19 Vaccine (2024-2 6 season) 2025 03/06/2022, 05/25/2021, 10/10/2020, Additional history exists Colorectal Cancer Screening 06/11/2025 FIT-DNA Q 3 years 06/11/2025 06/11/2022 FIT/ DNA Q 3 YEARS (AUTO ORDER) 06/11/2025 , 06/11/2022 Colorectal Cancer Screening (AUTO ORDER) 06/11/2027 FLEX SIG/CT COLONOGRAPHY Q 5 YEARS (AUTO ORDER) 06/11/2027 06/11/2022, 06/11/2022 DTAP/TDAP/TD VACCINES (2 - T d or Tdap) 10/08/2034 10/08/2024 RSV VACCINE (60+ or ) (1 - 1-dose 75+ series) 2037 Medicare Advantage (MS) Preventative Visit/Annual Wellness Visit Completed 02/21/2025, 07/16/2023, 05/28/2022 Procedures Procedure Name Priority Date/Time Associated Diagnosis Comments CBC WITH DIFFERENTIAL Routine 02/21/2025 8:41 AM CDT Mixed hyperlipidemia COMPREHENSIVE METABOLIC PANEL Routine 02/21/2025 8:41 AM CDT Mixed hyperlipidemia LIPID PANEL Routine 02/21/2025 8:41 AM CDT Mixed hyperlipidemia TSH Routine 02/21/2025 8:41 AM CDT Mixed hyperlipidemia VITAMIN D 25 HYDROXY Routine 02/21/2025 8:41 AM CDT Vitamin D deficiency PSA Routine 02/21/2025 8:41 AM CDT Encounter for screening for malignant neoplasm of prostate COLON CANCER SCREEN, STOOL DNA Routine 06/11/2022 8:00 PM AERIAL PLANTING AND CULTIVATION MANAGER Encounter for colorectal cancer screening from Last 3 Months or Most Recently Relevant to Health Maintenance Results * CBC WITH DIFFERENTIAL (02/21/2025 8:41 AM CDT) WBC 6.2 3.8 - 10.8 Thousand/u L [facility] RBC 4.49 4.20 - 5.80 Million/uL [facility] HEMOGLOBIN 13.7 13.2 - 17.1 g/dL [facility] HEMATOCRIT 42.4 38.5 - 50.0 % [facility] MCV 94.4 80.0 - 100.0 fL [facility] MCH 30.5 27.0 - 33.0 pg [facility] MCHC 32.3 32.0 - 36.0 g/dL [facility] Comment: For adults, a slight decrease in the calculated MCHC value (in the range of 30 to 32 g/dL) is most likely not clinically significant; however, it should be interpreted with caution in correlation with other red cell parameters and the patient's clinical condition. RDW 14.4 11.0 - 15.0 % [facility] PLATELETS 217 140 - 400 Thousand/u L [facility] MPV 9.0 7.5 - 12.5 fL [facility] NEUTROPHIL ABSOLUTE 3,956 1,500 - 7,800 cells/uL [facility] LYMPHOCYTE ABSOLUTE 1,500 850 - 3,900 cells/uL [facility] MONOCYTE ABSOLUTE 533 200 - 950 cells/uL [facility] EOSINOPHIL ABSOLUTE 180 15 - 500 cells/uL [facility] BASOPHILS ABSOLUTE 31 0 - 200 cells/uL [facility] NEUTROPHIL 63.8 % [facility] LYMPHOCYTES 24.2 % [facility] MONOCYTE 8.6 % [facility] EOSINOPHILS 2.9 % [facility] BASOPHILS 0.5 % [facility] Comment: Test Performed at: [facility] [id number] [place] [phone] Shital Cooper MD Blood 02/21/2025 8:41 AM CDT 02/22/2025 3:08 AM CDT October [facility] HEMATOLOGY ORDERABLES Final Resu lt [facility] [phone] [facility] [address] * (ABNORMAL) VITAMIN D 25 HYDROXY (02/21/2025 8:41 AM CDT) VITAMIN D, 25 OH, TOTAL 27(L) 30 - 100 ng/mL [facility] Comment: Vitamin D Status 25-OH Vitamin D: Deficiency: <20 ng/mL Insufficiency: 20 - 29 ng/mL Optimal: > or = 30 ng/mL For 25-OH Vitamin D testing on patients on D2-supplementation and patients for whom quantitation of D2 and D3 fractions is required, the QuestAssureD(TM) 25-OH VIT D, (D2,D3), LC/MS/MS is recommended: order code [id number] (patients >2yrs). See Note 1 Note 1 For additional information, please refer to http://education.Facishare/faq/GFG641 (This link is being provided for informational/ educational purposes only.) Test Performed at: [facility] [place] [address] AylaEsdrasjosé antonio Cooper MD Blood 02/21/2025 8:41 AM CDT 02/22/2025 3:08 AM CDT October [facility] CHEMISTRY ORDERABLES Final Resul t [facility] [phone] [facility] [address] * TSH (02/21/2025 8:41 AM CDT) TSH 1.31 0.40 - 4.50 mIU/L [facility] Comment: Test Performed at: [facility] [address] AylaMarlen Cooper MD Blood 02/21/2025 8:41 AM CDT 02/22/2025 3:08 AM CDT [facility]AB[facility] Final Resul t [facility] [phone] [address] * PSA (02/21/2025 8:41 AM CDT) PSA 0.31 < OR = 4.00 ng/mL [facility] Comment: The total PSA value from this assay system is standardized against the WHO standard. The test result will be approximately 20% lower when compared to the equimolar-standardized total PSA (Lena [place]). Comparison of serial PSA results should be interpreted with this fact in mind. This test was performed using the Siemens chemiluminescent method. Values obtained from different assay methods cannot be used interchangeably. PSA levels, regardless of value, should not be interpreted as absolute evidence of the presence or absence of disease. Test Performed at: [facility] [id number] [place] [address] Shital Cooper MD Blood 02/21/2025 8:41 AM CDT 02/22/2025 3:08 AM CDT October [facility] CHEMISTRY ORDERABLES Final Resul t [facility] [phone] [facility] [address] [place] [address] * (ABNORMAL) LIPID PANEL (02/21/2025 8:41 AM CDT) CHOLESTEROL 225(H) <200 mg/dL [facility] HDL 39(L) > OR = 40 mg/dL [facility] TRIGLYCERIDE 122 <150 mg/dL [facility] LDL CALCULATED 162(H) mg/dL (calc) [facility] Comment: Reference range: <100 Desirable range <100 mg/dL for primary prevention; <70 mg/dL for patients with CHD or diabetic patients with > or = 2 CHD risk factors. LDL-C is now calculated using the Can-Fuentes calculation, which is a validated novel method providing better accuracy than the Friedewald equation in the estimation of LDL-C. Can SS et al. RAFAEL. 2013;310(19): 6768-4634 (http://education.Neptune Software AS.[employer]/faq/RXN016) CHOL/HDL RATIO 5.8(H) <5.0 (calc) [facility] NON-HDL CHOLESTEROL 186(H) <130 mg/dL (calc) [facility] Comment: For patients with diabetes plus 1 major ASCVD risk factor, treating to a non-HDL-C goal of <100 mg/dL (LDL-C of <70 mg/dL) is considered a therapeutic option. Test Performed at: [facility] [address] [place] [address] Shital Cooper MD Blood 02/21/2025 8:41 AM CDT 02/22/2025 3:08 AM CDT October Waite [facility] CHEMISTRY ORDERABLES Final Resul t [facility] [phone] [facility] [address] [place] [address] * COMPREHENSIVE METABOLIC PANEL (02/21/2025 8:41 AM CDT) GLUCOSE 96 65 - 99 mg/dL [facility] Comment: Fasting reference interval BUN 11 7 - 25 mg/dL [facility] CREATININE 0.97 0.70 - 1.35 mg/dL [facility] GFR 88 > OR = 60 mL/min/1. 73m2 [facility] BUN/CREAT RATIO SEE NOTE: 6 - 22 (calc) [facility] Comment: Not Reported: BUN and Creatinine are within reference range. SODIUM 140 135 - 146 mmol/L [facility] POTASSIUM 3.7 3.5 - 5.3 mmol/L [facility] CHLORIDE 108 98 - 110 mmol/L [facility] CO2 25 20 - 32 mmol/L [facility] CALCIUM 9.2 8.6 - 10.3 mg/dL [facility] TOTAL PROTEIN 7.0 6.1 - 8.1 g/dL [facility] ALBUMIN 4.4 3.6 - 5.1 g/dL [facility] GLOBULIN 2.6 1.9 - 3.7 g/dL (calc) [facility] ALBUMIN/GLOBULIN RATIO 1.7 1.0 - 2.5 (calc) [facility] BILIRUBIN TOTAL 0.4 0.2 - 1.2 mg/dL [facility] ALKALINE PHOSPHATASE 96 35 - 144 U/L [facility] AST 15 10 - 35 U/L [facility] ALT 9 9 - 46 U/L [facility] Comment: Test Performed at: [facility] [address] [address] Shital Cooper MD Blood 02/21/2025 8:41 AM CDT 02/22/2025 3:08 AM CDT October [facility] CHEMISTRY ORDERABLES Final Resul t [facility] [phone] [facility] [address] [address] * COLON CANCER SCREEN, STOOL DNA (06/11/2022 8:00 PM AERIAL PLANTING AND CULTIVATION MANAGER) COLOGUARD RESULT Negative Negative [facility] Comment: NEGATIVE TEST RESULT. A negative Cologuard result indicates a low likelihood that a colorectal cancer (CRC) or advanced adenoma (adenomatous polyps with more advanced pre-malignant features) is present. The chance that a person with a negative Cologuard test has a colorectal cancer is less than 1 in 1500 (negative predictive value >99.9%) or has an advanced adenoma is less than 5.3% (negative predictive value 94.7%). These data are based on a prospective cross-sectional study of 10,000 individuals at average risk for colorectal cancer who were screened with both Cologuard and colonoscopy. (Samaria Alas et al, N Engl J Med 2014;370(14):9160-4861) The normal value (reference range) for this assay is negative. COLOGUARD RE-SCREENING RECOMMENDATION: Periodic colorectal cancer screening is an important part of preventive healthcare for asymptomatic individuals at average risk for colorectal cancer. Following a negative Cologuard result, the [employer] Society and U.S. Multi-Society Task Force screening guidelines recommend a Cologuard re-screening interval of 3 years. References: [employer] Guideline for Colorectal Cancer Screening: https://www.cancer.org/cancer/cbccd-cyoxwk-wsvhqq/abdqudfjf-yjrmcksao-uxtvjqm/ac s-rec ommendations.html.; Eric DK, Kindra CR, [place] PATEL, Colorectal Cancer Screening: Recommendations for Physicians and Patients from the U.S. Multi-Society Task Force on Colorectal Cancer Screening , Am J Gastroenterology 2017; 112:8082-7989. TEST DESCRIPTION: Composite algorithmic analysis of stool DNA-biomarkers with hemoglobin immunoassay. Quantitative values of individual biomarkers are not reportable and are not associated with individual biomarker result reference ranges. Cologuard is intended for colorectal cancer screening of adults of either sex, 45 years or older, who are at average-risk for colorectal cancer (CRC). Cologuard has been approved for use by the U.S. FDA. The performance of Cologuard was established in a cross sectional study of average-risk adults aged 50-84. Cologuard performance in patients ages 45 to 49 years was estimated by sub-group analysis of near-age groups. Colonoscopies performed for a positive result may find as the most clinically significant lesion: colorectal cancer [4.0%], advanced adenoma (including sessile serrated polyps greater than or equal to 1cm diameter) [20%] or non- advanced adenoma [31%]; or no colorectal neoplasia [45%]. These estimates are derived from a prospective cross-sectional screening study of 10,000 individuals at average risk for colorectal cancer who were screened with both Cologuard and colonoscopy. (Samaria Wylie. et al, N Engl J Med 2014;370(14):6749-5478.) Cologuard may produce a false negative or false positive result (no colorectal cancer or precancerous polyp present at colonoscopy follow up). A negative Cologuard test result does not guarantee the absence of CRC or advanced adenoma (pre-cancer). The current Cologuard screening interval is every 3 years. ([employer] Society and U.S. Multi-Society Task Force). Cologuard performance data in a 10,000 patient pivotal study using colonoscopy as the reference method can be accessed at the following location: www.Mowjow.com/results. Additional description of the Cologuard test process, warnings and precautions can be found at www.Applikard.com. Stool STOOL SPECIMEN / Unknown 06/11/2022 8:00 PM AERIAL PLANTING AND CULTIVATION MANAGER 06/13/2022 8:37 PM AERIAL PLANTING AND CULTIVATION MANAGER us Lyudmila Lowery DIRECTOR OF PHYSICAL SECURITY BODY FLUIDS AND STOOLS Final Res ult [facility] CLIA # [id number] [address], [address] [place] [address] from Last 3 Months or Most Recently Relevant to Health Maintenance Insurance [facility] MEDIC[facility] HMO Care Teams Digital Media Sales Consultant Relationship Specialty Start Date End Date Marci Simpson DO [address] [facility] [place] [id number] PCP - General Family Practice 08/30/24
[2025-03-21 23:29] VITALS: BP 181/99; PULSE 91; RESP 18; O2SAT 96
[2025-03-21 23:35] LABS: Hematocrit 48.8 % (37-53); Hemoglobin 16.10 g/dL (11.27-16.99); Mean Corpuscular HGB Conc 33.0 g/dL (30-55); Mean Corpuscular Hemoglobin 29.8 pg (27-33); Mean Corpuscular Volume 90.4 fl (82-101); Nucleated Red Blood Cells % 0 %; Platelet Count 282 10^3/cmm (157-399); Red Blood Count 5.40 10^6/uL (3.85-5.65); White Blood Count 10.77 10^3/uL (3.29-11.43)
[2025-03-21 23:39] LABS: PCP Screen Urine Negative (Negative)
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
[2025-03-21 23:45] LABS: Alanine Aminotransferase 27 U/L (0-41); Albumin Level 4.7 g/dL (3.5-5.2); Alcohol Level 272 mg/dL (0-10); Alkaline Phosphatase 134 U/L (40-130); Anion Gap 26.5 (5-19); Aspartate Amino Transferase 40 U/L (0-40); Blood Urea Nitrogen 9 mg/dL (8-23); Calcium 9.2 mg/dL (8.5-10.5); Carbon Dioxide 18 mmol/L (22-29); Chloride 101 mmol/L (98-107); Creatinine Clr Calc Pharmacy 68.6721; Globulin 3.5 g/dL (1.3-4.6); Glucose 133 mg/dL (65-115); Osmolality Calculated 295 mOsm/kg (285-295); Potassium 3.5 mmol/L (3.5-5.1); Sodium 142 mmol/L (136-145); Total Protein 8.2 g/dL (6.6-8.7)
[2025-03-21 23:46] VITALS: BP 155/102; PULSE 97; RESP 15; O2SAT 97
[2025-03-21 23:47] LABS: Acetaminophen < 5.0 ug/mL (10-30); Salicylate < 0.3 mg/dL (3-10)
[2025-03-22] VITALS (11 sets, daily range): BP systolic 125–163; BP diastolic 71–99; PULSE 81–102; RESP 13–18; TEMP 36.8–37.1; O2SAT 94–99
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
[2025-03-22] MEDS: water for injection-sterile 10 ML (05:46)
--- NOTE | 2025-03-22 05:57 | PC.NURSE ---
pt behavior when pt initially to unit he was very forgetful and unable to stay in bed. multiple deescalation attempts proved pt was still unable to stay in bed as pt was unsteady on his feet and acting out as if he were going to fall thinking its funny. pt refused to take po medication and we ended up having to manually restrain and give pt im medication. pt went to sleep shortly after.
--- NOTE | 2025-03-22 06:16 | PC.NURSE ---
Code 10 Multiple attempts made to keep pt in bed and deescalated. Pt repeatedly would not follow command. Pt stood near window pretending to tip over. Pt asked multiple times to stay in bed. Just close the door and I wont be your problem . Let me out of here and you wont see me again. Pt repeatedly stated I don't remember how I got here, I won't hurt anyone . During deescalation attempt, pt stood up and stepped towards this RN while raising his voice I'm grieving and this is how I grieve! Pt began taking off his socks, when asked why pt stated Cause I'm fixing to whoop some ass . Code 10 was then initiated. Pt placed in manual restraint via SAFE maneuver. No injury report by pt after restraint.
--- NOTE | 2025-03-22 07:28 | PC.OT ---
OT EVALUATON ORDERS RECEIVED. PER NURSING, HOLD DUE TO AGITATION
--- NOTE | 2025-03-22 14:15 | PC.NURSE ---
Dr. Mcelroy gave verbal order to DC one to one sitter.
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
[2025-03-23 06:00] VITALS: BP 157/85; PULSE 73; RESP 16; TEMP 36.9; O2SAT 100
--- NOTE | 2025-03-23 08:11 | P.NPUPN_ITS ---
Subjective NPU 2 Subjective: Patient presented today reporting that he had talked to his children especially his daughter and the plan is for him to go stay in a home that is on her property. He does spend time with his grandchildren and maybe do some traveling and look after himself. He continues to deny current lethality and reports that he has no plans of continuing drinking and he knows he needs the face his bereavement. Mental Status Exam 2 MSE Comments: This is a well-nourished well-developed white male looking younger than his stated age with adequate grooming and eye contact. No abnormal movements except for psychomotor retardation. Cooperative with exam in mild distress. Speech was decreased rate and volume. Mood described as having had a tough time recently affect was slightly subdued. Thought process organized. Thought content: Patient denied suicidal or homicidal ideation, there were no delusions reported or noted, he denied any auditory visual hallucinations. Reports feeling really good today but has experienced emotional difficulties following the recent loss of a life mate, who approximately 18 days ago and was buried on March 11, 2025. Denies having had crippling anxiety throughout life. Denies hearing voices or seeing things. Expressed some level of suicidal ideation, mentioning being stupid and getting on the drunk and stupid after the loss, which led someone to check on him. Expressed feeling like he finally got a little iron when asked about thoughts to hurt or kill himself. Has difficulty remembering the names of medications currently taking. Attention and concentration were intact and memory appeared reliable but none were formally tested. He is alert and oriented x 3. Insight and judgment are limited but improving, impulse control limited. Vitals/I&O/Wt Last Vital Signs Temp 98.5 F 03/23/25 06:00 Pulse 73 03/23/25 06:00 Resp 16 03/23/25 06:00 BP 157/85 03/23/25 06:00 Pulse Ox 100 03/23/25 06:00 O2 Del Method Room Air 03/23/25 06:00 O2 Flow Rate 2 03/22/25 01:00 Data NPU 03/21/25 23:16 03/21/25 23:16 A&P Assessment and plan 1. Suicidal ideation: 2. Alcohol intoxication: 3. Bereavement: 4. Adjustment disorder with mixed disturbance of emotions and conduct: Plan: This is a 64-year-old white male with no significant history of mental health issues with some limited history of addiction who presents with significant bereavement issues after the of his partner about 2-1/2 weeks ago which led to him drinking heavily which has not happened for couple decades which led to him being hospitalized. Acute grief reaction following recent loss of life partner. Alcohol intoxication and maladaptive coping with bereavement. Transient suicidal ideation associated with alcohol use, without evidence of persistent suicidality or underlying mood disorder. No evidence of psychosis, melinda, or substance use disorder outside of situational alcohol use. 1. Continue current medication. Will consider SSRI. 2. Discontinued one-to-one and started every 15 minute checks for safety. 3. Encourage individual, group and milieu therapy. 4. Encourage sober living treatment after discharge at the highest level care to which she is willing to commit. 5. Obtain collateral information. 6. Observe against the backdrop of the 96-hour old. PDMP PDMP Reviewed: Not Reviewed Involuntary Hold Information 2 Hold Status: Legal Status: 96 Hour Hold Date/Time Hold Expires: 03/25/2025 @ 2300 Attestations NPU 2 Medical Necessity Statement*: Inpatient hospitalization is medically necessary and the clinically appropriate intervention at this time. We will monitor/initiate medications and make changes as indicated. He will be in the hospital for over 2 midnights. Length of stay 1-2 days. Coding Level of Care Code Acute Code for Chg Fwd Diagnoses Suicidal ideation R45.851 Alcohol intoxication F10.929 Bereavement Z63.4 Adjustment disorder with mixed disturbance of emotions and conduct F43.25
[2025-03-23] MEDS: neomycin-poly-bacitracin oint 28 gm 1 APPLIC TOPICAL ×2 (08:52→18:37)
[2025-03-23 13:39] VITALS: BP 163/81; PULSE 80; RESP 18; TEMP 36.8; O2SAT 97
[2025-03-23 19:41] VITALS: BP 150/92; PULSE 78; RESP 16; TEMP 36.7; O2SAT 98
[2025-03-24 06:00] VITALS: BP 162/84; PULSE 68; RESP 16; TEMP 37; O2SAT 99
[2025-03-24] MEDS: neomycin-poly-bacitracin oint 28 gm 1 APPLIC TOPICAL (10:04)
[2025-03-24 13:04] VITALS: BP 162/84; PULSE 68; RESP 16; TEMP 37; O2SAT 99
[2025-03-24 14:00] VITALS: BP 161/80; PULSE 72; RESP 18; TEMP 36.4; O2SAT 99
--- NOTE | 2025-03-24 14:18 | DCPLANNER ---
IMM completed 03/24/2025 @ 2pm and pt was given a copy of his rights.
== END 2025-03-24 14:48 | disposition home or self-care (01) | DRG 880 ==
LOC: ER 03-22 00:14 → NP 03-22 01:29
PROVIDERS: Admitting Provider Psychiatry & Neurology Psychiatry; Emergency Provider Emergency Medicine; PCP Nurse Practitioner Family; Visit Provider Psychiatry & Neurology Psychiatry
DX: R45.851 Suicidal ideations (principal); Z72.0 Tobacco use; Z78.1 Physical restraint status; F10.129 Alcohol abuse with intoxication, unspecified; F12.90 Cannabis use, unspecified, uncomplicated; Y90.8 Blood alcohol level of 240 mg/100 ml or more; Z63.4 Disappearance and death of family member; Z81.8 Family history of other mental and behavioral disorders
CPT/HCPCS: 36415; 80053; 80306; 80307; 85025; 90935; 96372; 97150; 97165; 99285; J3486; J3490; J9999